=== PATIENT | female | born 1970 ===

== ENCOUNTER → 2018-08-26 | Outpatient (CLI) | payer OTHER ==
[2018-08-26 11:47] LABS: Leuteinizing Hormone 17.1 IU/L
[2018-08-26 11:48] LABS: Follicle Stimulating Hormone 16.73 IU/L (SEE BELOW)
== END | disposition home or self-care (01) ==
LOC: LAB 09:39
PROVIDERS: ATTEND Obstetrics & Gynecology
DX: N95.1 Menopausal and female climacteric states (principal)
CPT/HCPCS: 36415; 82670; 83001; 83002; 84403; 84443

== ENCOUNTER → 2020-01-25 | Outpatient (CLI) | payer OTHER ==
[2020-01-25 11:06] LABS: Leuteinizing Hormone 33.8 IU/L
[2020-01-25 11:30] LABS: Follicle Stimulating Hormone 47.58 IU/L (SEE BELOW)
== END | disposition home or self-care (01) ==
LOC: LAB 10:05
PROVIDERS: ATTEND Obstetrics & Gynecology
DX: N95.1 Menopausal and female climacteric states (principal)
CPT/HCPCS: 36415; 82670; 83001; 83002; 84403; 84443